=== PATIENT | female | born 1975 | race Caucasian/White ===

== ENCOUNTER 2017-09-14 19:00 | Inpatient (IN) | END 2017-09-25 15:00 | disposition home or self-care (01) | DRG 299 ==

== ENCOUNTER 2018-03-08 14:27 | Inpatient (IN) | END 2018-03-13 09:50 | disposition left against medical advice (07) | DRG 300 ==

== ENCOUNTER 2018-11-13 21:42 | Inpatient (IN) | payer OTHER ==
[~2018-11-13] VITALS: Ht 160 cm; Wt 147.0 kg
[~2018-11-13 21:42] MED LIST: GABA800T PO
[2018-11-13 23:30] VITALS: BP 137/89; PULSE 103; RESP 20; Ht 160 cm; Wt 147.0 kg
[2018-11-14] VITALS (12 sets, daily range): BP systolic 129–168; BP diastolic 64–86; PULSE 81–109; RESP 18–21
[2018-11-14] MEDS ORDERED: ONDANSETRON 4 MG INJ IV PRN (01:00)
[2018-11-14] MEDS ORDERED: ALBUTEROL/IPRATROPIUM (NEB) 3 ML AMP HHN PRN (01:00)
[2018-11-14] MEDS ORDERED: ACETAMINOPHEN 325 MG TAB PO PRN (01:00)
[2018-11-14] MEDS ORDERED: METHYLPREDNISOLONE 40 MG INJ IV ONE (01:00)
[2018-11-14] MEDS ORDERED: NACL 0.9% 3 ML SYG IV SCH (01:00)
[2018-11-14] MEDS ORDERED: HYDROCODONE/APAP (5/325) TAB PO PRN (01:30)
[2018-11-14] MEDS: morphine 4 MG/ML VIAL IV PRN ×3 (02:00→10:56)
--- NOTE | 2018-11-14 08:23 | HP ---
Date/Time of Note Date/Time of Note DATE: 11/14/18 TIME: 08:16 Assessment/Plan VTE Prophylaxis Pharmacological prophylaxis: heparin Assessment/Plan Assessment/Plan 1. Left lower extremity erysipelas: Erythema almost completely resolved -Continue IV antibiotic -Pain management 2. Acute on chronic shortness of breath, most likely secondary to COPD exacerbation: Patient with a history of COPD and multiple PE -Supplemental oxygen, bronchodilators, needed steroid -Consider chest CT based on clinical course -Pulmonary consult 3. 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 Morbid obesity with a BMI of 57: Weight reduction advised 5. Chronic pain syndrome: Patient stated that she follows up with a pain specialist -Patient to be seen by Dr. Luevano HPI/ROS Admit Date/Time Admit Date/Time November 13, 2018 at 23:05 Hx of Present Illness This is a 43-year-old morbidly obese female with a history of COPD, left lower extremity DVT, multiple PEs, history of IVC filter who initially presented on outside hospital complaining of left lower extremity pain and redness. She was diagnosed with cellulitis and was transferred to [facility] for insurance reason. Lower extremity venous study at the outside facility shows chronic appearing left lower extremity DVT. The redness on her leg has almost completely resolved, which patient attributed to the antibiotic that she was given at the outside hospital. Currently her complaint is pain on the left leg. She said that she follows up with a pain specialist as outpatient and requesting Dilaudid. On further questioning, she did complain of chronic shortness of breath, worsening over the past 2 weeks. She said she is in the process of being referred to a registered nurses for a sleep study and for evaluation of CPAP/BiPAP. PMH/Family/Social Past Medical History Medical History: other (See HPI) Medications Current Medications IV Flush (NS 3 ml) 3 ml PER PROTOCOL IV ; Start 11/14/18 at 01:00 Ondansetron HCl (Zofran Inj) 4 mg Q6H PRN IV NAUSEA/VOMITING; Start 11/14/18 at 01:00 Acetaminophen (Tylenol Tab) 650 mg Q6H PRN PO .PAIN 1-3 OR TEMP; Start 11/14/18 at 01:00 Heparin Sodium (Porcine) (Heparin (5000 Units/1ml)) 5,000 unit Q12 SC ; Start 11/14/18 at 09:00 Albuterol/ Ipratropium (Duoneb) 3 ml Q2H RESP THERAPY PRN HHN SHORTNESS OF BREATH; Start 11/14/18 at 01:00 Morphine Sulfate (morphine) 3 mg Q4H PRN IV SEVERE PAIN LEVEL 7-10 Last admi nistered on 11/14/18at 06:58; Admin Dose 3 MG; Start 11/14/18 at 01:00 Acetaminophen/ Hydrocodone Bitart ([place] (5/325)) 1 tab Q4H PRN PO MODERATE PAIN LEVEL 4-6; Start 11/14/18 at 01:30 Coded Allergies: ciprofloxacin (Verified Allergy, Intermediate, 09/14/17) Past Surgical History Past Surgical Hx: other (See HPI) Family History Significant Family History: no pertinent family hx Social History Alcohol Use: none Smoking Status: Former smoker Drug Use: none Exam/Review of Systems Vital Signs Vitals Vital Signs Date Temp Pulse Resp B/P (MAP) Pulse Ox O2 O2 Flow FiO2 Time Delivery Rate 11/14/18 107 08:07 11/14/18 97.7 20 139/86 93 07:28 (103) 11/14/18 Nasal 3.0 05:09 Cannula Intake and Output 11/13/18 11/13/18 11/14/18 1515:00 23:00 07:00 IntakeIntake Total 400 ml BalanceBalance 400 ml Exam Constitutional: other (Morbidly obese female lying in bed. Able speak in full sentences) Head: normocephalic, atraumatic Eyes: EOMI, PERRL Respiratory: diminished breath sounds Cardiovascular: other (Tachycardic with regular rhythm) Gastrointestinal: soft Extremities: other (Left lower extremity with mild erythema. Slight tenderness on palpation of calf) CIERRA MANZO MD November 14, 2018 08:23
[2018-11-14] MEDS: TRIMETHOPRIM/SULFAMETHOX (DS) TAB PO SCH ×2 (09:22→21:56)
[2018-11-14] MEDS: HEPARIN 5,000 UNIT/1 ML VIAL SC SCH ×2 (09:30→22:01)
[2018-11-14] MEDS: GABAPENTIN 400 MG CAP PO SCH ×2 (13:27→21:56)
[2018-11-14] MEDS: CARISOPRODOL 350 MG TAB NGT SCH ×2 (13:27→21:56)
[2018-11-14] MEDS: HYDROmorphONE 2 MG TAB PO PRN ×3 (13:28→21:57)
--- NOTE | 2018-11-14 14:05 | PN ---
Date/Time of Note Date/Time of Note DATE: 11/14/18 TIME: 13:58 Assessment/Plan VTE Prophylaxis Risk score (from Ns)>0 risk: 2 SCD applied (from Ns): No SCD contraindicated: other Pharmacological prophylaxis: heparin Lines/Catheters IV Catheter Type (from Nrsg): PICC Line Central line still needed: Yes Assessment/Plan Assessment/Plan 1. Left lower extremity cellulitis, improving, on bactrim 2. COPD exacerbation, improving, neb prn 3. 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 Morbid obesity with a BMI of 57: Weight reduction advised 5. Chronic pain syndrome: Patient stated that she follows up with a pain specialist, Patient to be seen by Dr. Luevano 6. DVT prophylaxis: heparin Result Diagram: 11/14/18 0947 11/14/18 0947 Results 24hrs Laboratory Tests Test 11/14/18 09:47 White Blood Count 4.5 #L Red Blood Count 4.42 # Hemoglobin 11.4 #L Hematocrit 35.8 #L Mean Corpuscular Volume 81.0 L Mean Corpuscular Hemoglobin 25.8 L Mean Corpuscular Hemoglobin Concent 31.8 L Red Cell Distribution Width 16.4 H Platelet Count 180 # Mean Platelet Volume 8.7 Immature Granulocytes % 0.900 H Neutrophils % 86.8 H Lymphocytes % 11.0 L Monocytes % 1.3 Eosinophils % 0.0 Basophils % 0.0 Nucleated Red Blood Cells % 0.0 Immature Granulocytes # 0.040 H Neutrophils # 3.9 Lymphocytes # 0.5 L Monocytes # 0.1 L Eosinophils # 0.0 Basophils # 0.0 Nucleated Red Blood Cells # 0.0 Sodium Level 139 Potassium Level 4.3 Chloride Level 104 Carbon Dioxide Level 29 Anion Gap 6 Blood Urea Nitrogen 5 L Creatinine 0.50 Est Glomerular Filtrat Rate mL/min > 60 Glucose Level 147 Hemoglobin A1c 5.3 Calcium Level 9.1 Total Bilirubin 0.2 Direct Bilirubin 0.00 Indirect Bilirubin 0.2 Aspartate Amino Transf (AST/SGOT) 12 L Alanine Aminotransferase (ALT/SGPT) 13 Alkaline Phosphatase 92 Total Protein 6.9 Albumin 3.6 Globulin 3.30 H Albumin/Globulin Ratio 1.09 Triglycerides Level 84 Cholesterol Level 228 H LDL Cholesterol, Calculated 150 HDL Cholesterol 61 Cholesterol/HDL Ratio 3.7 Subjective 24 Hr Interval Summary Free Text/Dictation minimal redness on left lower extremity and pain. less shortness of breath today Exam/Review of Systems Exam Vitals Vital Signs Date Temp Pulse Resp B/P (MAP) Pulse Ox O2 O2 Flow FiO2 Time Delivery Rate 11/14/18 107 12:11 11/14/18 97.7 20 140/76 93 11:18 (97) 11/14/18 Nasal 3.0 07:50 Cannula Intake and Output 11/13/18 11/13/18 11/14/18 1515:00 23:00 07:00 IntakeIntake Total 400 ml BalanceBalance 400 ml Constitutional: alert, oriented, well developed, obese Psych: no complaints, nl mood/affect Head: normocephalic, atraumatic Eyes: nl conjunctiva, EOMI, nl lids, nl sclera, PERRL ENMT: nl external ears & nose, nl lips & teeth, nl nasal mucosa & septum Neck: supple, non-tender Respiratory: clear to auscultation, normal air movement; No congested cough, No crackles/rales, No diminished breath sounds, No intercostal retraction, No labored breathing, No respirations, No tactile fremitus, No wheezing, No other Cardiovascular: regular rate and rhythm, nl pulses; No bruits, No diastolic murmur, No edema, No gallop, No irregular rhythm, No jugular venous distention (JVD), No murmurs/extra sounds, No rub, No systolic murmur, No S3, No S4, No other Gastrointestinal: soft, nl liver, spleen, non-tender; No ascites, No bowel sounds, No distended, No firm, No hepatomegaly, No mass, No rebound or guarding, No splenomegaly, No surgical scars, No tender, No other Extremities: normal pulses, other (minimal redness at left calf area with tenderness) Neurological: COLLECTIONS REPRESENTATIVE II-XII intact, nl mental status, nl speech, nl strength Results Results 24hrs Laboratory Tests Test 11/14/18 09:47 White Blood Count 4.5 #L Red Blood Count 4.42 # Hemoglobin 11.4 #L Hematocrit 35.8 #L Mean Corpuscular Volume 81.0 L Mean Corpuscular Hemoglobin 25.8 L Mean Corpuscular Hemoglobin Concent 31.8 L Red Cell Distribution Width 16.4 H Platelet Count 180 # Mean Platelet Volume 8.7 Immature Granulocytes % 0.900 H Neutrophils % 86.8 H Lymphocytes % 11.0 L Monocytes % 1.3 Eosinophils % 0.0 Basophils % 0.0 Nucleated Red Blood Cells % 0.0 Immature Granulocytes # 0.040 H Neutrophils # 3.9 Lymphocytes # 0.5 L Monocytes # 0.1 L Eosinophils # 0.0 Basophils # 0.0 Nucleated Red Blood Cells # 0.0 Sodium Level 139 Potassium Level 4.3 Chloride Level 104 Carbon Dioxide Level 29 Anion Gap 6 Blood Urea Nitrogen 5 L Creatinine 0.50 Est Glomerular Filtrat Rate mL/min > 60 Glucose Level 147 Hemoglobin A1c 5.3 Calcium Level 9.1 Total Bilirubin 0.2 Direct Bilirubin 0.00 Indirect Bilirubin 0.2 Aspartate Amino Transf (AST/SGOT) 12 L Alanine Aminotransferase (ALT/SGPT) 13 Alkaline Phosphatase 92 Total Protein 6.9 Albumin 3.6 Globulin 3.30 H Albumin/Globulin Ratio 1.09 Triglycerides Level 84 Cholesterol Level 228 H LDL Cholesterol, Calculated 150 HDL Cholesterol 61 Cholesterol/HDL Ratio 3.7 Medications Medication Current Medications IV Flush (NS 3 ml) 3 ml PER PROTOCOL IV ; Start 11/14/18 at 01:00 Ondansetron HCl (Zofran Inj) 4 mg Q6H PRN IV NAUSEA/VOMITING; Start 11/14/18 at 01:00 Acetaminophen (Tylenol Tab) 650 mg Q6H PRN PO .PAIN 1-3 OR TEMP; Start 11/14/18 at 01:00 Heparin Sodium (Porcine) (Heparin (5000 Units/1ml)) 5,000 unit Q12 SC Last administered on 11/14/18at 09:30; Admin Dose 5,000 UNIT; Start 11/14/18 at 09:00 Albuterol/ Ipratropium (Duoneb) 3 ml Q2H RESP THERAPY PRN HHN SHORTNESS OF VINICIUS ATH; Start 11/14/18 at 01:00 Trimethoprim/ Sulfamethoxazole (Bactrim (Ds)) 1 tab BID PO Last administered on 11/14/18at 09:22; Admin Dose 1 TAB; Start 11/14/18 at 09:00 Carisoprodol (Soma) 350 mg TID NGT Last administered on 11/14/18at 13:27; Admin Dose 350 MG; Start 11/14/18 at 13:00 Gabapentin (Neurontin) 800 mg Q8 PO Last administered on 11/14/18 13:27; Admin Dose 800 MG; Start 11/14/18 at 14:00 Hydromorphone HCl (Dilaudid) 3 mg Q4H PRN PO SEVERE PAIN LEVEL 7-10 Last administered on 11/14/18 13:28; Admin Dose 3 MG; Start 11/14/18 at 13:00 MARY KATE PEREIRA MD November 14, 2018 14:05
[2018-11-15] VITALS (10 sets, daily range): BP systolic 126–131; BP diastolic 66–82; PULSE 69–114; RESP 19–22
[2018-11-15] MEDS: HYDROmorphONE 2 MG TAB PO PRN ×5 (03:20→22:08)
[2018-11-15] MEDS: GABAPENTIN 400 MG CAP PO SCH ×3 (06:32→22:07)
[2018-11-15] MEDS: CARISOPRODOL 350 MG TAB NGT SCH ×3 (08:15→22:03)
[2018-11-15] MEDS: TRIMETHOPRIM/SULFAMETHOX (DS) TAB PO SCH ×2 (08:15→20:58)
[2018-11-15] MEDS: HEPARIN 5,000 UNIT/1 ML VIAL SC SCH ×2 (08:17→21:05)
--- NOTE | 2018-11-15 13:14 | PN ---
Date/Time of Note Date/Time of Note DATE: 11/15/18 TIME: 13:10 Assessment/Plan VTE Prophylaxis Risk score (from Ns)>0 risk: 1 SCD applied (from Ns): No SCD contraindicated: other Pharmacological prophylaxis: heparin Lines/Catheters IV Catheter Type (from Nrsg): PICC Line Central line still needed: Yes Assessment/Plan Assessment/Plan 1. Left lower extremity cellulitis, improving, on bactrim 2. COPD exacerbation, improving, neb prn 3. Abdominal pain, likely due to umbilical hernia, CT scan 4. 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 Morbid obesity with a BMI of 57: Weight reduction advised 6. Chronic pain syndrome: Patient stated that she follows up with a pain specialist, Patient to be seen by Dr. Luevano 7. DVT prophylaxis: heparin Result Diagram: 11/15/18 0602 11/15/18 0602 Results 24hrs Laboratory Tests Test 11/15/18 06:02 White Blood Count 5.1 Red Blood Count 4.17 L Hemoglobin 10.7 L Hematocrit 34.7 L Mean Corpuscular Volume 83.2 Mean Corpuscular Hemoglobin 25.7 L Mean Corpuscular Hemoglobin Concent 30.8 L Red Cell Distribution Width 16.7 H Platelet Count 166 Mean Platelet Volume 9.0 Immature Granulocytes % 0.400 Neutrophils % 63.5 Lymphocytes % 25.0 Monocytes % 10.7 Eosinophils % 0.0 Basophils % 0.4 Nucleated Red Blood Cells % 0.0 Immature Granulocytes # 0.020 Neutrophils # 3.2 Lymphocytes # 1.3 Monocytes # 0.5 Eosinophils # 0.0 Basophils # 0.0 Nucleated Red Blood Cells # 0.0 Sodium Level 141 Potassium Level 4.0 Chloride Level 108 Carbon Dioxide Level 29 Anion Gap 4 L Blood Urea Nitrogen 8 Creatinine 0.61 Est Glomerular Filtrat Rate mL/min > 60 Glucose Level 90 # Calcium Level 8.9 Phosphorus Level 3.5 Magnesium Level 2.1 Subjective 24 Hr Interval Summary Free Text/Dictation abdominal pain, nausea, no vomiting, normal BM yesterday morning Exam/Review of Systems Exam Vitals Vital Signs Date Temp Pulse Resp B/P (MAP) Pulse Ox O2 O2 Flow FiO2 Time Delivery Rate 11/15/18 98.1 69 19 131/77 9 11:21 (95) 5/9/19 Nasal 3.0 07:35 Cannula Intake and Output 11/14/18 11/14/18 11/15/18 1515:00 23:00 07:00 IntakeIntake Total 950 ml 500 ml BalanceBalance 950 ml 500 ml Constitutional: alert, oriented, well developed, obese Psych: no complaints, nl mood/affect Head: normocephalic, atraumatic Eyes: nl conjunctiva, EOMI, nl lids ENMT: nl external ears & nose, nl lips & teeth, nl nasal mucosa & septum Neck: supple, non-tender Respiratory: clear to auscultation, normal air movement; No congested cough, No crackles/rales, No diminished breath sounds, No intercostal retraction, No labored breathing, No respirations, No tactile fremitus, No wheezing, No other Cardiovascular: regular rate and rhythm, nl pulses; No bruits, No diastolic murmur, No edema, No gallop, No irregular rhythm, No jugular venous distention (JVD), No murmurs/extra sounds, No rub, No systolic murmur, No S3, No S4, No other Gastrointestinal: soft, nl liver, spleen, tender (central abdominal tenderness, small umbilical hernia) Musculoskeletal: nl extremities to inspection Extremities: normal pulses, other (less redensss on left lower extremity) Neurological: REFRIGERATION OPERATOR II-XII intact, nl mental status, nl speech, nl strength Skin: nl turgor Results Results 24hrs Laboratory Tests Test 11/15/18 06:02 White Blood Count 5.1 Red Blood Count 4.17 L Hemoglobin 10.7 L Hematocrit 34.7 L Mean Corpuscular Volume 83.2 Mean Corpuscular Hemoglobin 25.7 L Mean Corpuscular Hemoglobin Concent 30.8 L Red Cell Distribution Width 16.7 H Platelet Count 166 Mean Platelet Volume 9.0 Immature Granulocytes % 0.400 Neutrophils % 63.5 Lymphocytes % 25.0 Monocytes % 10.7 Eosinophils % 0.0 Basophils % 0.4 Nucleated Red Blood Cells % 0.0 Immature Granulocytes # 0.020 Neutrophils # 3.2 Lymphocytes # 1.3 Monocytes # 0.5 Eosinophils # 0.0 Basophils # 0.0 Nucleated Red Blood Cells # 0.0 Sodium Level 141 Potassium Level 4.0 Chloride Level 108 Carbon Dioxide Level 29 Anion Gap 4 L Blood Urea Nitrogen 8 Creatinine 0.61 Est Glomerular Filtrat Rate mL/min > 60 Glucose Level 90 # Calcium Level 8.9 Phosphorus Level 3.5 Magnesium Level 2.1 Medications Medication Current Medications IV Flush (NS 3 ml) 3 ml PER PROTOCOL IV ; Start 11/14/18 at 01:00 Ondansetron HCl (Zofran Inj) 4 mg Q6H PRN IV NAUSEA/VOMITING; Start 11/14/18 at 01:00 Acetaminophen (Tylenol Tab) 650 mg Q6H PRN PO .PAIN 1-3 OR TEMP; Start 11/14/18 at 01:00 Heparin Sodium (Porcine) (Heparin (5000 Units/1ml)) 5,000 unit Q12 SC Last administered on 11/15/18 08:17; Admin Dose 5,000 UNIT; Start 11/14/18 at 09:00 Albuterol/ Ipratropium (Duoneb) 3 ml Q2H RESP THERAPY PRN HHN SHORTNESS OF BREATH; Start 11/14/18 at 01:00 Trimethoprim/ Sulfamethoxazole (Bactrim (Ds)) 1 tab BID PO Last administered on 11/15/18 08:15; Admin Dose 1 TAB; Start 11/14/18 at 09:00 Carisoprodol (Soma) 350 mg TID NGT Last administered on 11/15/18 13:02; Admin Dose 350 MG; Start 11/14/18 at 13:00 Gabapentin (Neurontin) 800 mg Q8 PO Last administered on 11/15/18 13:02; Admin Dose 800 MG; Start 11/14/18 at 14:00 Hydromorphone HCl (Dilaudid) 3 mg Q4H PRN PO SEVERE PAIN LEVEL 7-10 Last administered on 11/15/18 13:03; Admin Dose 3 MG; Start 11/14/18 at 13:00 MARY KATE PEREIRA MD November 15, 2018 13:14
[2018-11-15] MEDS: POTASSIUM CHLORIDE 10 MEQ in SOD CHLORIDE 0.45% 1,000 ML IV SCH (17:44)
[2018-11-16] VITALS (10 sets, daily range): BP systolic 118–141; BP diastolic 70–78; PULSE 77–99; RESP 18–20
[2018-11-16] MEDS: HYDROmorphONE 2 MG TAB PO PRN ×6 (02:06→22:27)
[2018-11-16] MEDS: POTASSIUM CHLORIDE 10 MEQ in SOD CHLORIDE 0.45% 1,000 ML IV SCH ×2 (04:45→17:18)
[2018-11-16] MEDS: CARISOPRODOL 350 MG TAB NGT SCH ×3 (06:08→22:26)
[2018-11-16] MEDS: GABAPENTIN 400 MG CAP PO SCH ×3 (06:08→22:26)
[2018-11-16] MEDS: TRIMETHOPRIM/SULFAMETHOX (DS) TAB PO SCH ×2 (08:43→20:37)
[2018-11-16] MEDS: HEPARIN 5,000 UNIT/1 ML VIAL SC SCH ×2 (08:53→20:39)
--- NOTE | 2018-11-16 13:15 | PN ---
Date/Time of Note Date/Time of Note DATE: 11/16/18 TIME: 13:11 Assessment/Plan VTE Prophylaxis Risk score (from Nsg)>0 risk: 2 SCD applied (from Ns): No SCD contraindicated: other Pharmacological prophylaxis: heparin Lines/Catheters IV Catheter Type (from Nrsg): PICC Line Central line still needed: Yes Assessment/Plan Assessment/Plan 1. Left lower extremity cellulitis, improving, on bactrim, keep left LE elevated 2. COPD exacerbation, stable 3. Large ventral hernia, need repair electively, patient is informed to see a surgeon in 2 weeks or so(treat cellulitis first) 4. 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 Morbid obesity with a BMI of 57: Weight reduction advised 6. Chronic pain syndrome: Patient stated that she follows up with a pain specialist, Patient to be seen by Dr. Luevano 7. DVT prophylaxis: heparin 8. Patient lives alone, her daughter is back tomorrow. D/C home tomorrow Result Diagram: 11/16/18 0545 11/16/18 0545 Results 24hrs Laboratory Tests Test 11/16/18 05:45 White Blood Count 4.3 L Red Blood Count 4.07 L Hemoglobin 10.4 L Hematocrit 34.2 L Mean Corpuscular Volume 84.0 Mean Corpuscular Hemoglobin 25.6 L Mean Corpuscular Hemoglobin Concent 30.4 L Red Cell Distribution Width 16.7 H Platelet Count 151 Mean Platelet Volume 8.7 Immature Granulocytes % 0.500 H Neutrophils % 47.0 Lymphocytes % 37.4 Monocytes % 10.4 Eosinophils % 4.2 Basophils % 0.5 Nucleated Red Blood Cells % 0.0 Immature Granulocytes # 0.020 Neutrophils # 2.0 Lymphocytes # 1.6 Monocytes # 0.4 Eosinophils # 0.2 Basophils # 0.0 Nucleated Red Blood Cells # 0.0 Sodium Level 138 Potassium Level 4.4 Chloride Level 102 Carbon Dioxide Level 30 Anion Gap 6 Blood Urea Nitrogen 10 Creatinine 0.68 Est Glomerular Filtrat Rate mL/min > 60 Glucose Level 76 Calcium Level 8.8 Magnesium Level 1.9 Subjective 24 Hr Interval Summary Free Text/Dictation no abdominal pain, tolerates diet, no nausea or vomiting Exam/Review of Systems Exam Vitals Vital Signs Date Temp Pulse Resp B/P (MAP) Pulse Ox O2 O2 Flow FiO2 Time Delivery Rate 11/16/18 99 12:33 11/16/18 97.7 19 118/78 97 Nasal 11:06 (91) Cannula 11/16/18 3.0 09:38 Intake and Output 11/15/18 11/15/18 11/16/18 1515:00 23:00 07:00 IntakeIntake Total 1600 ml BalanceBalance 1600 ml Constitutional: alert, oriented, well developed, obese Head: normocephalic, atraumatic Eyes: nl conjunctiva, EOMI, nl lids, PERRL ENMT: nl external ears & nose, nl lips & teeth, nl nasal mucosa & septum Neck: supple, non-tender Respiratory: clear to auscultation, normal air movement; No congested cough, No crackles/rales, No diminished breath sounds, No intercostal retraction, No labored breathing, No respirations, No tactile fremitus, No wheezing, No other Cardiovascular: regular rate and rhythm, nl pulses; No bruits, No diastolic murmur, No edema, No gallop, No irregular rhythm, No jugular venous distention (JVD), No murmurs/extra sounds, No rub, No systolic murmur, No S3, No S4, No other Gastrointestinal: soft, nl liver, spleen, non-tender Musculoskeletal: nl extremities to inspection Extremities: other (left lower extremity edema and redness, less) Neurological: COMMUNICATIONS FIELD TECHNICIAN II-XII intact, nl mental status, nl speech, nl strength Results Results 24hrs Laboratory Tests Test 11/16/18 05:45 White Blood Count 4.3 L Red Blood Count 4.07 L Hemoglobin 10.4 L Hematocrit 34.2 L Mean Corpuscular Volume 84.0 Mean Corpuscular Hemoglobin 25.6 L Mean Corpuscular Hemoglobin Concent 30.4 L Red Cell Distribution Width 16.7 H Platelet Count 151 Mean Platelet Volume 8.7 Immature Granulocytes % 0.500 H Neutrophils % 47.0 Lymphocytes % 37.4 Monocytes % 10.4 Eosinophils % 4.2 Basophils % 0.5 Nucleated Red Blood Cells % 0.0 Immature Granulocytes # 0.020 Neutrophils # 2.0 Lymphocytes # 1.6 Monocytes # 0.4 Eosinophils # 0.2 Basophils # 0.0 Nucleated Red Blood Cells # 0.0 Sodium Level 138 Potassium Level 4.4 Chloride Level 102 Carbon Dioxide Level 30 Anion Gap 6 Blood Urea Nitrogen 10 Creatinine 0.68 Est Glomerular Filtrat Rate mL/min > 60 Glucose Level 76 Calcium Level 8.8 Magnesium Level 1.9 Medications Medication Current Medications IV Flush (NS 3 ml) 3 ml PER PROTOCOL IV ; Start 11/14/18 at 01:00 Ondansetron HCl (Zofran Inj) 4 mg Q6H PRN IV NAUSEA/VOMITING; Start 11/14/18 at 01:00 Acetaminophen (Tylenol Tab) 650 mg Q6H PRN PO .PAIN 1-3 OR TEMP; Start 11/14/18 at 01:00 Heparin Sodium (Porcine) (Heparin (5000 Units/1ml)) 5,000 unit Q12 SC Last administered on 11/16/18 08:53; Admin Dose 5,000 UNIT; Start 11/14/18 at 09:00 Albuterol/ Ipratropium (Duoneb) 3 ml Q2H RESP THERAPY PRN HHN SHORTNESS OF BREATH; Start 11/14/18 at 01:00 Trimethoprim/ Sulfamethoxazole (Bactrim (Ds)) 1 tab BID PO Last administered on 11/16/18 08:43; Admin Dose 1 TAB; Start 11/14/18 at 09:00 Carisoprodol (Soma) 350 mg TID NGT Last administered on 11/16/18 06:08; Admin Dose 350 MG; Start 11/14/18 at 13:00 Gabapentin (Neurontin) 800 mg Q8 PO Last administered on 11/16/18 06:08; Admin Dose 800 MG; Start 11/14/18 at 14:00 Hydromorphone HCl (Dilaudid) 3 mg Q4H PRN PO SEVERE PAIN LEVEL 7-10 Last administered on 11/16/18 10:11; Admin Dose 3 MG; Start 11/14/18 at 13:00 Potassium Chloride 10 meq/ Sodium Chloride 1,005 ml @ 75 mls/hr [id number] IV Last administered on 11/16/18 04:45; Admin Dose 75 MLS/HR; Start 11/15/18 at 14:30 MARY KATE PEREIRA MD November 16, 2018 13:15
[2018-11-17] VITALS (13 sets, daily range): BP systolic 123–138; BP diastolic 60–84; PULSE 85–110; RESP 19–20
[2018-11-17] MEDS: HYDROmorphONE 2 MG TAB PO PRN ×7 (02:49→22:48)
[2018-11-17] MEDS: CARISOPRODOL 350 MG TAB NGT SCH ×3 (06:47→22:47)
[2018-11-17] MEDS: GABAPENTIN 400 MG CAP PO SCH ×3 (06:48→22:47)
[2018-11-17] MEDS: POTASSIUM CHLORIDE 10 MEQ in SOD CHLORIDE 0.45% 1,000 ML IV SCH (06:50)
[2018-11-17] MEDS: TRIMETHOPRIM/SULFAMETHOX (DS) TAB PO SCH (08:45)
[2018-11-17] MEDS: HEPARIN 5,000 UNIT/1 ML VIAL SC SCH (08:48)
--- NOTE | 2018-11-17 09:53 | PN ---
Date/Time of Note Date/Time of Note DATE: 11/17/18 TIME: 09:49 Assessment/Plan VTE Prophylaxis Risk score (from Ns)>0 risk: 2 SCD applied (from [facility] [place]): No SCD contraindicated: other Pharmacological prophylaxis: LMWH Lines/Catheters IV Catheter Type ([facility] PICC Line Central line still needed: Yes Assessment/Plan Hospital Course S: Patient complaining of some right upper extremity redness and swelling bicep area. Still claiming to not have received her home oxygen yet. Also asking why she is not on her home Lovenox dose 1 mg/kg subcu twice daily which she has been taking for the last year for a prior history of DVTs (although she does have IVC filter in place). O: Vs- see below PE: Constitutional: alert, oriented, well developed, obese Head: normocephalic, atraumatic Eyes: nl conjunctiva, EOMI, nl lids, PERRL ENMT: nl external ears & nose, nl lips & teeth, nl nasal mucosa & septum Neck: supple, non-tender Respiratory: clear to auscultation, normal air movement; No congested cough, No crackles/rales, No diminished breath sounds, No intercostal retraction, No labored breathing, No respirations, No tactile fremitus, No wheezing, No other Cardiovascular: regular rate and rhythm, nl pulses; No bruits, No diastolic murmur, No edema, No gallop, No irregular rhythm, No jugular venous distention (JVD), No murmurs/extra sounds, No rub, No systolic murmur, No S3, No S4, No other Gastrointestinal: soft, nl liver, spleen, non-tender Musculoskeletal: nl extremities to inspection Extremities: other (left lower extremity edema and redness, less) Neurological: [facility] II-XII intact, nl mental status, nl speech, nl strength Assessment/Plan: 23-year-old female who presents with: 1. Left lower extremity cellulitis, slowly improving, has been on bactrim. However her right upper extremity has some redness and swelling noted today, PICC in place there -Continue to keep left LE elevated -Given possible new cellulitis findings in the right upper extremity and swelling, will get ultrasound of that area and switch antibiotics to IV Zosyn, hold Bactrim 2. COPD exacerbation, stable 3. Large ventral hernia, need repair electively, patient is informed to see a surgeon in 2 weeks or so(treat cellulitis first) 4. 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 Morbid obesity with a BMI of 57: Weight reduction advised, also will check with case management about her home oxygen when and see if that has been ordered now 6. Chronic pain syndrome: Patient stated that she follows up with a pain sp ecialist, Patient to be seen by Dr. Luevano 7. DVT prophylaxis: heparin 8. Patient lives alone, her daughter is back tomorrow. Dispo: D/C home likely tomorrow if her right upper extremity cellulitis and left lower semi-cellulitis improved, and confirmation of home oxygen has been delivered. Result Diagram: 11/16/1845 11/16/1845 Exam/Review of Systems Exam Vitals Vital Signs Date Temp Pulse Resp B/P (MAP) Pulse Ox O2 O2 Flow FiO2 Time Delivery Rate 11/17/18 Nasal 3.0 09:05 Cannula 11/17/18 110 08:00 11/17/18 98.2 19 123/69 96 07:51 (87) Intake and Output 11/16/18 11/16/18 11/17/18 1515:00 23:00 07:00 IntakeIntake Total 1750 ml 1200 ml BalanceBalance 1750 ml 1200 ml Medications Medication Current Medications IV Flush (NS 3 ml) 3 ml PER PROTOCOL IV ; Start 11/14/18 at 01:00 Ondansetron HCl (Zofran Inj) 4 mg Q6H PRN IV NAUSEA/VOMITING; Start 11/14/18 at 01:00 Acetaminophen (Tylenol Tab) 650 mg Q6H PRN PO .PAIN 1-3 OR TEMP; Start 11/14/18 at 01:00 Albuterol/ Ipratropium (Duoneb) 3 ml Q2H RESP THERAPY PRN HHN SHORTNESS OF BREATH; Start 11/14/18 at 01:00 Trimethoprim/ Sulfamethoxazole (Bactrim (Ds)) 1 tab BID PO Last administered on 5/11/19at 08:45; Admin Dose 1 TAB; Start 11/14/18 at 09:00 Carisoprodol (Soma) 350 mg TID NGT Last administered on 11/17/18 06:47; Admin Dose 350 MG; Start 11/14/18 at 13:00 Gabapentin (Neurontin) 800 mg Q8 PO Last administered on 11/17/18 06:48; Admin Dose 800 MG; Start 11/14/18 at 14:00 Hydromorphone HCl (Dilaudid) 3 mg Q4H PRN PO SEVERE PAIN LEVEL 7-10 Last ad ministered on 11/17/18 06:48; Admin Dose 3 MG; Start 11/14/18 at 13:00 Potassium Chloride 10 meq/ Sodium Chloride 1,005 ml @ 75 mls/hr [id number] IV Last administered on 11/17/18 06:50; Admin Dose 75 MLS/HR; Start 11/15/18 at 14:30 Enoxaparin Sodium (Lovenox) 145 mg Q12 SC ; Start 11/17/18 at 10:00; Status FARNAZ EL November 17, 2018 09:53
[2018-11-17] MEDS: ENOXAPARIN 100 MG/ML SYG SC SCH ×2 (10:14→21:09)
[2018-11-17] MEDS: PIPER-TAZO 3.375 GM IV (PMX) 100 ML IVPB SCH ×3 (11:05→23:31)
[2018-11-17] MEDS ORDERED: IBUPROFEN 400 MG TAB PO PRN (18:30)
[2018-11-18] VITALS (9 sets, daily range): BP systolic 118–141; BP diastolic 59–68; PULSE 85–108; RESP 18–20
[2018-11-18] MEDS ORDERED: HYDROmorphONE 1 MG/ML SYG IV ONE (01:30)
[2018-11-18] MEDS: HYDROmorphONE 2 MG TAB PO PRN ×4 (02:43→15:13)
[2018-11-18] MEDS ORDERED: HYDROmorphONE 2 MG/ML SYG IV ONE (04:46)
[2018-11-18] MEDS: PIPER-TAZO 3.375 GM IV (PMX) 100 ML IVPB SCH ×2 (06:07→12:16)
[2018-11-18] MEDS: CARISOPRODOL 350 MG TAB NGT SCH ×2 (06:48→15:12)
[2018-11-18] MEDS: GABAPENTIN 400 MG CAP PO SCH ×2 (06:48→15:12)
[2018-11-18] MEDS: ENOXAPARIN 100 MG/ML SYG SC SCH (08:27)
--- NOTE | 2018-11-18 13:19 | PDOCDIS ---
Discharge Instructions CONDITION [id number] Patient Condition: [id number] Stable HOME CARE INSTRUCTIONS: [id number] Diet Instructions: [id number] Low Fat /Cholesterol ACTIVITY: [id number] Activity Restrictions: [id number] Slowly Increase Activity Rest between Activity Avoid heavy lifting FOLLOW UP/APPOINTMENTS Follow-up Plan Please take your medications as prescribed, see your doctor in the clinic in the next 1 week. FARNAZ HOGAN November 18, 2018 13:19
[2018-11-18] MEDS ORDERED: ENOX100D2 SC (13:21)
[2018-11-18] MEDS ORDERED: HYDR2TAB36 PO (13:21)
[2018-11-18] MEDS ORDERED: SULF-182 PO (13:21)
[2018-11-18] MEDS ORDERED: CARI350T29 NGT (13:21)
--- NOTE | 2018-11-18 13:31 | DS ---
Date/Time of Note Date/Time of Note DATE: 11/18/18 TIME: 13:26 Discharge Summary Admission/Discharge Info Admit Date/Time November 13, 2018 at 23:05 Discharge Date/Time Discharge Diagnosis 1. Left lower extremity cellulitis, slowly improving, has been on bactrim. 2. COPD exacerbation, stable, on home oxygen 3. Large ventral hernia, need repair electively, patient is informed to see a surgeon in 2 weeks or so(treat cellulitis first) 4. 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 Morbid obesity with a BMI of 57: Weight reduction advised, 6. Chronic pain syndrome: Patient stated that she follows up with a pain specialist, Patient to be seen by Dr. Luevano Patient Condition: Stable Procedures A. CT abdomen pelvis November 15, 2018: IMPRESSION: 1. No acute intra-abdominal abnormality. 2. No mass, lymphadenopathy, or focal acute inflammatory process is identified. 3. Large ventral abdominal wall hernia measuring 7.7 cm with smaller periumbilical hernia measuring 11 mm. B. Upper extremity ultrasound: IMPRESSION: Thrombosed right basilic vein. PICC line within the right basilic vein. Hx of Present Illness 43-year-old morbidly obese female with a history of COPD, left lower extremity DVT, multiple PEs, history of IVC filter who initially presented on outside hospital complaining of left lower extremity pain and redness. She was diagnosed with cellulitis and was transferred to [facility] fo r insurance reason. Lower extremity venous study at the outside facility shows chronic appearing left lower extremity DVT. The redness on her leg has almost completely resolved, which patient attributed to the antibiotic that she was given at the outside hospital. Currently her complaint is pain on the left leg. She said that she follows up with a pain specialist as outpatient and requesting Dilaudid. On further questioning, she did complain of chronic shortness of breath, worsening over the past 2 weeks. She said she is in the process of being referred to a chemical engraver for a sleep study and for evaluation of CPAP/BiPAP. Hospital Course Patient was admitted and placed on antibiotics for cellulitis. The cellulitis in the left lower extremity slowly improved. Patient required P ICC placement due to poor venous access and she was eventually switched over to p.o. antibiotics. Her labs remained stable. She was able to ambulate with assistance, tolerated p.o. diet.she was complaining of right upper extremity swelling a couple of days after PICC was placed, and was found on ultrasound with thrombosed right basilic vein. She was resumed on her home Lovenox which she has been taken for the last year 1 mg/kg subcu twice daily. She states she was presently awaiting an outpatient follow-up appointment with hematology oncology team for hypercoagulable work-up. Patient overall is clinically improved and now however. Once the shoe parts caser has confirmed and set up her refilling of her home oxygen which she takes at home, the tank, she will be discharged home today improved condition. See below for full list of discharge medications. Home Meds Active Scripts Enoxaparin Sodium (Enoxaparin Sodium) 100 Mg/1 Ml Syringe, 145 MG SC Q12 for 30 Days Prov:FARNAZ HOGAN. 11/18/18 Hydromorphone Hcl* (Dilaudid*) 2 Mg Tablet, 3 MG PO Q4H PRN for SEVERE PAIN LEVEL 7-10 for 10 Days, TAB Prov:FARNAZ HOGAN S. 11/18/18 Carisoprodol* (Carisoprodol*) 350 Mg Tablet, 350 MG NGT TID for 10 Days, TAB Prov:FARNAZ HOGAN S. 11/18/18 Sulfamethoxazole/Trimethoprim (Sulfamethoxazole-Tmp Ds Tablet) 1 Each Tablet, 1 TAB PO BID for 7 Days, #14 TAB Prov:FARNAZ HOGAN. 11/18/18 Reported Medications Gabapentin* (Neurontin*) 800 Mg Tablet, 800 MG PO Q8, #90 TAB 09/14/17 Follow-up Plan Please take your medications as prescribed, see your doctor in the clinic in the next 1 week. Primary Care Provider Not On Staff Doctor Time spent on discharge: > 30 minutes FARNAZ HOGAN November 18, 2018 13:31
[2018-11-18] MEDS ORDERED: TRIMETHOPRIM/SULFAMETHOX (DS) TAB PO SCH (21:00)
== END 2018-11-18 18:26 | disposition home or self-care (01) | DRG 191 ==
LOC: 6WM 23:05
PROVIDERS: ADMIT Internal Medicine; ATTEND Hospitalist
DX: J44.1 Chronic obstructive pulmonary disease with (acute) exacerbation (principal); L03.116 Cellulitis of left lower limb; Z68.43 Body mass index [BMI] 50.0-59.9, adult; T82.868A Thrombosis due to vascular prosthetic devices, implants and grafts, initial encounter; E66.01 Morbid (severe) obesity due to excess calories; G89.4 Chronic pain syndrome; K43.9 Ventral hernia without obstruction or gangrene; A46 Erysipelas; Y83.8 Other surgical procedures as the cause of abnormal reaction of the patient, or of later complication, without mention of misadventure at the time of the procedure; Z86.711 Personal history of pulmonary embolism; Z86.718 Personal history of other venous thrombosis and embolism; Z79.01 Long term (current) use of anticoagulants
CPT/HCPCS: 74176; 80048; 80053; 80061; 83036; 83735; 84100; 84703; 85025; 93971; J1170; J1644; J1650; J2270; J2543; J2920; J3480